=== PATIENT | female | born 1960 | race Caucasian/White ===

== ENCOUNTER 2021-08-17 08:16 | Day surgery (SDC) | payer BC ==
[2021-08-16 12:32] LABS: BASOPHILS # (AUTO) 0.1 X10'3 (0-0.2); BASOPHILS % (AUTO) 1.1 % (0-1); EOSINOPHILS # (AUTO) 0.1 X10'3 (0-0.9); EOSINOPHILS % (AUTO) 1.9 % (0-6); LYMPHOCYTES # (AUTO) 1.8 X10'3 (1.1-4.8); LYMPHOCYTES % (AUTO) 25.2 % (21-51); MEAN CORPUSCULAR HEMOGLOBIN 33.2 PG (27.0-31.0); MEAN CORPUSCULAR HGB CONC 33.4 g/dL (33.0-36.5); MEAN CORPUSCULAR VOLUME 99.5 FL (78-98); MEAN PLATELET VOLUME 7.8 FL (7.4-10.4); MONOCYTES # (AUTO) 0.4 X10'3 (0-0.9); MONOCYTES % (AUTO) 5.8 % (2-12); NEUTROPHILS # (AUTO) 4.6 X10'3 (1.8-7.7); PRE OP HEMATOCRIT 39.9 % (35.0-45.0); PRE OP HEMOGLOBIN 13.3 g/dL (12.0-16.0); PRE OP PLATELET COUNT 265 X10'3 (140-440); RED BLOOD COUNT 4.01 X10'6 (4.20-5.60); RED CELL DISTRIBUTION WIDTH 13.4 % (11.5-14.5)
[2021-08-16 13:09] LABS: ALBUMIN 3.8 G/DL (3.4-5.0); ALBUMIN/GLOBULIN RATIO 1.3 (1.1-1.5); ALKALINE PHOSPHATASE 99 IU/L (46-116); BLOOD UREA NITROGEN 26 MG/DL (7-18); BUN/CREATININE RATIO 23.9 (6.6-38.0); CALCIUM 8.3 MG/DL (8.5-10.1); CHLORIDE 104 MMOL/L (99-107); CREATININE 1.09 MG/DL (0.40-0.90); PRE OP ALT 45 U/L (30-65); PRE OP ANION GAP 7 (8-16); PRE OP AST 29 U/L (10-37); PRE OP BILIRUB, TOTAL 0.4 MG/DL (0.0-1.0); PRE OP GLUCOSE 149 MG/DL (70-104); PRE OP POTASSIUM 4.2 MMOL/L (3.4-5.1); PRE OP SODIUM 140 MMOL/L (135-145); TOTAL CARBON DIOXIDE 29.2 MMOL/L (24-32); TOTAL PROTEIN 6.7 G/DL (6.4-8.2); eGFR 51 ML/MIN
[~2021-08-17] VITALS: Ht 160 cm; Wt 70.9 kg
[2021-08-17] VITALS (8 sets, daily range): BP systolic 117–132; BP diastolic 68–82
[~2021-08-17 08:16] MED LIST: AMLO10TA PO; ARIP5TAB14 PO; DESV50TA PO; GABA600T13 PO; LEVO75CA5 PO; LISD60CA PO; NALO25TA4 PO; NITR100C PO; OXYC-150 PO; PHEN15CA6 PO; TIZA4CAP PO; VALS1TAB81 PO; ZOLP5TAB2 PO; ceFAZolin 1,000 MG in NS 50ML IVPB IV ONE; famotidine 20mg tablet PO ONE; ringers solution, lacted 1,000 ML IV SCH
[2021-08-17] MEDS ORDERED: LIDOcaine 1% 30ml preserv. free vial ONE (10:25)
[2021-08-17] MEDS ORDERED: BUPIVAcaine 0.5% inj/PF 30 ML ONE (12:06)
[2021-08-17] MEDS ORDERED: fentaNYL/PF 50MCG/1 ML 2ML syringe ONE (12:21)
[2021-08-17] MEDS ORDERED: MIDAZolam 1 MG/ML 5ML VIAL ONE (12:21)
[2021-08-17] MEDS ORDERED: BUPIVAcaine 0.5% inj/PF 30 ml vial IJ ONE (12:35)
[2021-08-17] MEDS ORDERED: ketorolac trometh. 30mg/ml inj. ONE (12:52)
--- NOTE | 2021-08-17 12:52 | NUR ---
Received from OR via [facility] , accompanied by Anesthesiologist EDEL and report given by Anesthesiolgist. PATIENT WITH RUBEN TO RIGHT WRIST AND ELBOW. ALL CDI. + CAP REFILL AND AREA PWD. NO DRAINAGE PRESENT AT THIS TIME.3L NASAL CANNULA WITH 98% SATURATIONS. DENIES PAIN AT THIS TIME. Addendum: 08/17/21 at 1308 by Americo Harris RN, RN Amended: Links added.
--- NOTE | 2021-08-17 13:42 | NUR ---
ALL DC CRITERIA FOR HOME HAS BEEN MET. VSS. DENIES PAIN. DRESSING TO ELBOW AND RIGHT WRIST ARE CDI. NO DRAINAGE EVIDENT AT THIS TIME. PATIENT IV OUT WITHOUT COMPLICATION. OUT VIA WHEELCHAIR TO PERSONAL VEHICLE WHERE FRIEND DROVE PATIENT HOME. ALL DC INSTRUCTIONS COVERED AND ALL QUESTIONS ANSWERED. Addendum: 08/17/21 at 1412 by Americo Harris RN, RN Amended: Links added.
== END 2021-08-17 13:42 | disposition home or self-care (01) ==
LOC: PAS 08:16
PROVIDERS: ATTEND Orthopaedic Surgery Hand Surgery
DX: G56.01 Carpal tunnel syndrome, right upper limb (principal); G56.21 Lesion of ulnar nerve, right upper limb; G89.29 Other chronic pain; G47.30 Sleep apnea, unspecified; F32.9 Major depressive disorder, single episode, unspecified; M19.90 Unspecified osteoarthritis, unspecified site; F41.9 Anxiety disorder, unspecified; Z20.822 Contact with and (suspected) exposure to COVID-19; Z79.899 Other long term (current) drug therapy; Z88.8 Allergy status to other drugs, medicaments and biological substances; Z90.49 Acquired absence of other specified parts of digestive tract; Z98.890 Other specified postprocedural states; Z72.89 Other problems related to lifestyle
CPT/HCPCS: 29848; 36415; 64718; 80053; 82948; 85025; 87635; 93005; C9803; J0690; J1885; J2250; J3010; J3490; J7030; J7120; S0020; Z7506; Z7512; A4215; A6449; A7000